=== PATIENT | male | born 1995 | race Two or more races ===

== ENCOUNTER 2019-09-29 21:10 | Emergency (ER) | payer OTHER ==
[~2019-09-29] VITALS: Ht 167.6 cm; Wt 65.9 kg
[2019-09-29] MEDS: LIDOCAINE 1% 10 ML VIAL INJ ONE (23:43)
[2019-09-29] MEDS: PERTUSS(ACELL),DIPH,TET VAC/PF 0.5 ML VIAL IM ONE (23:44)
[2019-09-30 00:35] VITALS: BP 129/76
== END 2019-09-30 00:40 | disposition home or self-care (01) ==
LOC: EMS 21:12
DX: S61.012A Laceration without foreign body of left thumb without damage to nail, initial encounter (principal); W45.8XXA Other foreign body or object entering through skin, initial encounter; Y93.89 Activity, other specified; Y92.89 Other specified places as the place of occurrence of the external cause; Y99.8 Other external cause status
CPT/HCPCS: 12001; 90471; 90715; 99283; J3490

== ENCOUNTER 2019-10-01 12:48 | Emergency (ER) | payer OTHER ==
[~2019-10-01] VITALS: Ht 162.6 cm; Wt 68.2 kg
[2019-10-01 12:53] VITALS: BP 126/84
[2019-10-01] MEDS ORDERED: BACITRACIN 0.9 GM PACKET OINTMENT TP ONE (15:15)
== END 2019-10-01 15:23 | disposition home or self-care (01) ==
LOC: EMS 12:49
DX: S61.012D Laceration without foreign body of left thumb without damage to nail, subsequent encounter (principal); F17.210 Nicotine dependence, cigarettes, uncomplicated; W45.8XXD Other foreign body or object entering through skin, subsequent encounter

== ENCOUNTER 2019-10-10 14:39 | Emergency (ER) | payer OTHER ==
[~2019-10-10] VITALS: Ht 167.6 cm; Wt 67.7 kg
[2019-10-10 15:42] VITALS: BP 120/87
== END 2019-10-10 15:40 | disposition home or self-care (01) ==
LOC: EMS 14:40
DX: S61.012D Laceration without foreign body of left thumb without damage to nail, subsequent encounter (principal); F17.210 Nicotine dependence, cigarettes, uncomplicated; Z48.02 Encounter for removal of sutures; W45.8XXD Other foreign body or object entering through skin, subsequent encounter